=== PATIENT | female | born 1990 | race Caucasian/White ===

== ENCOUNTER 2019-12-14 13:44 | Emergency (ER) | payer OTHER, BC ==
[2019-12-14] MEDS ORDERED: Acetaminophen 325 MG Tab PO ONE (14:02)
--- NOTE | 2019-12-14 14:29 | CR ---
Cervical spine: AP, lateral and odontoid views of the cervical spine were obtained. Comparison: No previous study. Vertebral body heights and disc spaces are maintained. Minimal cervical kyphosis is seen. Prevertebral soft tissues are normal. No subluxation or fracture is identified. Impression: 1. Slight cervical kyphosis either due to muscle spasm or is positional. 2. Three-view cervical spine study is otherwise unremarkable. Diagnostic code #2 This report was dictated in [place] Standard Time
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
== END 2019-12-14 14:43 | disposition home or self-care (01) ==
LOC: JD.ED 13:44
DX: S16.1XXA Strain of muscle, fascia and tendon at neck level, initial encounter (principal); E03.9 Hypothyroidism, unspecified; Z79.899 Other long term (current) drug therapy; V58.5XXA Driver of pick-up truck or van injured in noncollision transport accident in traffic accident, initial encounter; Y92.410 Unspecified street and highway as the place of occurrence of the external cause
CPT/HCPCS: 72040; 99283; A9270; 99282

== ENCOUNTER 2020-09-06 15:40 | Emergency (ER) | payer BC ==
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
== END 2020-09-06 18:40 | disposition home or self-care (01) ==
LOC: JD.ED 15:40
DX: J02.9 Acute pharyngitis, unspecified (principal); K21.9 Gastro-esophageal reflux disease without esophagitis; F41.9 Anxiety disorder, unspecified; F32.9 Major depressive disorder, single episode, unspecified; E03.9 Hypothyroidism, unspecified; F17.210 Nicotine dependence, cigarettes, uncomplicated; Z79.899 Other long term (current) drug therapy; Z20.828 Contact with and (suspected) exposure to other viral communicable diseases
CPT/HCPCS: 87804; 99282; 99284; U0002

== ENCOUNTER 2020-12-02 17:54 | Emergency (ER) | payer BC ==
--- NOTE | 2020-12-02 19:04 | EDM.PDOC ---
ED HPI GENERAL MEDICAL PROBLEM - General Chief Complaint: Back Pain or Injury Stated Complaint: RECTAL BLEEDING X 2 WEEKS Time Seen by Provider: 12/02/20 18:21 Source of Information: Reports: Patient, RN Notes Reviewed History Limitations: Reports: No Limitations - History of Present Illness INITIAL COMMENTS - FREE TEXT/NARRATIVE: Patient is a 30-year-old female presenting to the emergency department with complaints of a 2-week history of intermittent rectal bleeding. She states that for the last few months, she has been constipated and that when she has a bowel movement it is quite hard. She is not having any abdominal pain. Initially, bleeding started as a small amount of blood on the toilet paper when she would wipe, however over the last few days it has increased in amount and she does pass a few small clots when she has bowel movements. She denies any rectal pain or a known history of hemorrhoids. States it is not painful to have a bowel movement. She has tried stool softeners and laxative and verbalized that it does not make a difference in the consistency of her stool. She has been going regularly over the last few weeks but the stools continue to be somewhat hard. Rectal Pain Score (Numeric/FACES): 3 - Related Data Allergies Allergy/AdvReac Type Severity Reaction Status Date / Time No Known Allergies Allergy Verified 12/14/19 13:59 Home Meds: Home Meds Levothyroxine 25 mcg PO DAILY 08/13/18 [History] Pantoprazole Sodium [Protonix] 40 mg PO ASDIRECTED 08/13/18 [History] Prazosin HCl [Prazosin] 2 mg PO DAILY 12/14/19 [History] Venlafaxine [Effexor XR] 150 mg PO DAILY 12/14/19 [History] Methylphenidate HCl [Methylphenidate ER] 32 mg PO DAILY 09/06/20 [History] Adalimumab [Humira(Cf) Pen] 1 injection INJECT ASDIRECTED 12/02/20 [History] Past Medical History - Past Health History Medical/Surgical History: Denies Medical/Surgical History Gastrointestinal History: Reports: GERD 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 Denies: Fever, Weakness HEENT: Reports: No Symptoms Respiratory: Reports: No Symptoms Cardiovascular: Reports: No Symptoms Endocrine: Reports: No Symptoms GI/Abdominal: Reports: Bloody Stool, Constipation. Denies: Abdominal Pain, Diarrhea, Nausea, Vomiting : Reports: No Symptoms Musculoskeletal: Reports: No Symptoms Skin: Reports: No Symptoms Neurological: Reports: No Symptoms Psychiatric: Reports: No Symptoms Hematologic/Lymphatic: Reports: No Symptoms Immunologic: Reports: No Symptoms ED EXAM, GI/ABD - Physical Exam Exam: See Below Exam Limited By: No Limitations General Appearance: Alert, WD/WN, No Apparent Distress Respiratory/Chest: No Respiratory Distress, Lungs Clear, Normal Breath Sounds, No Accessory Muscle Use, Chest Non-Tender Cardiovascular: Normal Peripheral Pulses, Regular Rate, Rhythm, No Edema, No Gallop, No JVD, No Murmur, No Rub GI/Abdominal Exam: Normal Bowel Sounds, Soft, Non-Tender, No Organomegaly, No Distention, No Abnormal Bruit, No Mass, Pelvis Stable Rectal (Female) Exam: Normal Exam, Normal Rectal Tone, Other (small amount of saman red blood noted after digital rectal exam. Heme+. ). No: Hemorrhoids, Rectal Fissure, Tenderness Neurological: Alert, Oriented, CN II-XII Intact, Normal Cognition, Normal Gait, Normal Reflexes, No Motor/Sensory Deficits Psychiatric: Normal Affect, Normal Mood Skin Exam: Warm, Dry, Intact, Normal Color, No Rash Course - Vital Signs Last Recorded V/S: Last Vital Signs Temp 97.3 F 12/02/20 18:20 Pulse 92 12/02/20 18:20 Resp 18 12/02/20 18:20 BP 147/120 H 12/02/20 18:20 Pulse Ox 98 12/02/20 18:20 - Orders/Labs/Meds Labs: Laboratory Tests 12/02/20 12/02/20 Range/Units 18:52 18:52 WBC 8.90 (3.98-10.04) K/mm3 RBC 4.65 (3.98-5.22) M/mm3 Hgb 11.9 (11.2-15.7) gm/dl Hct 37.8 (34.1-44.9) % MCV 81.3 (79.4-94.8) fl MCH 25.6 (25.6-32.2) pg MCHC 31.5 L (32.2-35.5) g/dl RDW Std Deviation 43.1 (36.4-46.3) fL Plt Count 376 H (182-369) K/mm3 MPV 9.1 L (9.4-12.3) fl Neut % (Auto) 44.7 (34.0-71.1) % Lymph % (Auto) 44.7 (19.3-51.7) % [place]eman % (Auto) 10.3 (4.7-12.5) % Eos % (Auto) 0 L (0.7-5.8) Baso % (Auto) 0.3 (0.1-1.2) % Neut # (Auto) 3.97 (1.56-6.13) K/mm3 Lymph # (Auto) 3.98 H (1.18-3.74) K/mm3 [place]eman # (Auto) 0.92 H (0.24-0.36) K/mm3 Eos # (Auto) 0.00 L (0.04-0.36) K/mm3 Baso # (Auto) 0.03 (0.01-0.08) K/mm3 Sodium 141 (136-145) mEq/L Potassium 3.5 (3.5-5.1) mEq/L Chloride 104 (98-107) mEq/L Carbon Dioxide 25 (21-32) mEq/L Anion Gap 15.5 H (5-15) BUN 13 (7-18) mg/dL Creatinine 1.0 (0.55-1.02) mg/dL Est Cr Clr Drug Dosing 74.69 mL/min Estimated GFR (MDRD) > 60 (>60) mL/min BUN/Creatinine Ratio 13.0 L (14-18) Glucose 82 (74-106) mg/dL Calcium 8.9 (8.5-10.1) mg/dL Total Bilirubin 0.3 (0.2-1.0) mg/dL AST 13 L (15-37) U/L ALT 26 (14-59) U/L Alkaline Phosphatase 73 (46-116) U/L Total Protein 7.5 (6.4-8.2) g/dl Albumin 3.6 (3.4-5.0) g/dl Globulin 3.9 gm/dL Albumin/Globulin Ratio 0.9 L (1-2) - Re-Assessments/Exams Free Text/Narrative Re-Assessment/Exam: Patient is a 30-year-old female presenting to the emergency department with complaints of a 2-week history of intermittent rectal bleeding which has been gradually increasing in amount. She does admit to being chronically constipated over the last few months. She is not currently taking any stool softeners that she states it does not help. She denies any abdominal or rectal pain. She has not been experiencing any lightheadedness. Abdominal exam is grossly unremarkable. Rectal exam showed no visible fissures or external hemorrhoids. After digital rectal exam, there was a small amount of saman red blood noted. W e will complete baseline labs including CBC and CMP. 12/02/20 19:26 Hematology is grossly unremarkable. Hemoglobin normal at 11.9. We will send a referral to general surgery for evaluation with regards to the rectal bleeding. Patient refers Dr. Esposito at [place]. Recommend that she call her office tomorrow morning to set up an appointment. Return to ER for any worsening symptoms. Discharge instructions as documented. Departure - Departure Time of Disposition: 19:26 Disposition: Home, Self-Care 01 Condition: Good Clinical Impression: Rectal bleeding - Discharge Information *PRESCRIPTION DRUG MONITORING PROGRAM REVIEWED*: No *COPY OF PRESCRIPTION DRUG MONITORING REPORT IN PATIENT BARBARA: No Instructions: Rectal Bleeding Referrals: Fabby Jean Baptiste MD [Primary Care Provider] - Tammy Esposito MD [Physician] - Forms: ED Department Discharge Additional Instructions: You were seen in the emergency department today for a 2-week history of intermittent rectal bleeding increasing in amount over the last few days. Rectal exam was completed and did not show any obvious fissures or external hemorrhoids. There was a small amount of blood noted on exam. This may be related to your constipation and hard stools. I would recommend that you take Colace 100 mg twice daily to try to soften up your stool. A referral has been sent to Dr. Esposito, general surgeon, at [place]. Recommend contacting her office tomorrow morning to set up an appointment. Return to ER for any new or worsening symptoms of concern. Sepsis Event Note (ED) - Evaluation Sepsis Screening Result: No Definite Risk - Focused Exam Vital Signs: Vital Signs Temp Pulse Resp BP Pulse Ox 12/02/20 18:20 97.3 F 92 18 147/120 H 98
== END 2020-12-02 19:38 | disposition home or self-care (01) ==
LOC: JD.ED 17:54
DX: K62.5 Hemorrhage of anus and rectum (principal); E03.9 Hypothyroidism, unspecified; Z79.899 Other long term (current) drug therapy
CPT/HCPCS: 36415; 80053; 85025; 99283